=== PATIENT | male | born 1955 | race Hispanic/Latino ===

== ENCOUNTER 2018-05-20 11:30 | Inpatient (IN) | payer OTHER ==
--- NOTE | 2018-05-20 11:57 | ED PDOC ---
HPI: SOB/CHF/COPD Time Seen by Provider: 05/20/18 11:40 Chief Complaint (Nursing): Shortness Of Breath Chief Complaint (Provider): Shortness Of Breath History Per: Patient History/Exam Limitations: no limitations Onset/Duration Of Symptoms: Days Current Symptoms Are (Timing): Still Present Additional Complaint(s): 62 y/o male with a PMHx of Asthma, HTN, DM , CAD s/p stent placement, renal insufficiency and suprapubic tube placement brought to the ED by EMS for chest pain, shortness of breath, swelling and redness to the lower extremities bilaterally. Patient reports chest pain and shortness of breath started this morning while redness and swelling began 2-3 days ago. Patient denies fever and cough. PMD: Monalisa Arroyo Past Medical History Reviewed: Historical Data, Nursing Documentation, Vital Signs Vital Signs: Last Vital Signs Temp 98.5 F 05/20/18 11:38 Pulse 93 H 05/20/18 11:38 Resp 21 05/20/18 11:38 BP 151/79 H 05/20/18 11:38 Pulse Ox 100 05/20/18 11:38 - Medical History PMH: COPD, Diabetes, HTN, Hypercholesterolemia, Hypothyroidism, Kidney Stones (LASER TX. DONE PREVIOUSLY -NEW STONE NOW(08/09/16)), Peripheral Edema ("ON AND OFF"), Pneumonia (2015), Chronic Kidney Disease, Rheumatoid Arthritis Denies: HIV - Surgical History Surgical History: Appendectomy, Coronary Stent (1996 2006), Endoscopy, Hernia Repair - Family History Family History: States: Unknown Family Hx - Immunization History Hx Tetanus Toxoid Vaccination: No Hx Influenza Vaccination: Yes (Apr 2016) Hx Pneumococcal Vaccination: No - Home Medications Home Medications: Ambulatory Orders Medication Instructions Recorded Atorvastatin [Lipitor] 40 mg PO HS 12/17/15 Clopidogrel [Plavix] 75 mg PO DAILY 12/17/15 SITagliptin [Januvia] 25 mg PO DAILY 12/17/15 Isosorbide Mononitrate [Isosorbide 60 mg PO DAILY 12/18/15 Mononitrate ER] Levothyroxine [Synthroid] 125 mcg PO DAILY 12/18/15 Metoprolol Succinate XL [Toprol XL] 100 mg PO BID 12/18/15 Sucralfate 1 gm PO QID 12/18/15 amLODIPine [Norvasc] 5 mg PO DAILY 12/18/15 Albuterol 0.083% [Albuterol 0.083% 3 ml NEB TID 08/09/16 Inhal Leslie (2.5 mg/3 ml) UD] Albuterol HFA [Ventolin HFA 90 2 puff IH Q4 PRN 08/09/16 mcg/actuation (8 g)] Ergocalciferol (Vitamin D2) 50,000 unit PO QWK 08/09/16 [Vitamin D2] Esomeprazole Magnesium [Nexium] 20 mg PO DAILY 08/09/16 Fluticasone/Vilanterol [Breo 1 puff IH BID 08/09/16 Ellipta 100-25 Mcg INH] Nitroglycerin [Nitrostat] 0.4 mg SL PRN PRN 08/09/16 Ranolazine [Ranexa] 500 mg PO BID 08/09/16 Tiotropium Bowen Inhaler 1 puff IH DAILY 08/09/16 [Spiriva Inhalation Handihaler Device] Ciprofloxacin [Cipro] 1 tab PO BID #6 tab 09/15/16 Esomeprazole Magnesium [Nexium] 20 mg PO DAILY 09/21/16 Fluticasone/Vilanterol [Breo 1 puff IH DAILY 09/21/16 Ellipta 100-25 Mcg INH] Loratadine [Claritin] 10 mg PO DAILY 09/21/16 Tamsulosin [Flomax] 2 cap PO DAILY 09/21/16 - Allergies Allergies/Adverse Reactions: Allergies Allergy/AdvReac Type Severity Reaction Status Date / Time erythromycin base Allergy ANGIOEDEMA Verified 05/20/18 11:46 Review of Systems ROS Statement: Except As Marked, All Systems Reviewed And Found Negative Cardiovascular: Positive for: Chest Pain Respiratory: Positive for: Shortness of Breath Musculoskeletal: Positive for: Leg Pain (redness and swelling to the bilateral lower extremities) Physical Exam - Reviewed Nursing Documentation Reviewed: Yes Vital Signs Reviewed: Yes - Physical Exam Appears: Positive for: No Acute Distress Head Exam: Positive for: ATRAUMATIC Skin: Positive for: Warm, Dry Eye Exam: Positive for: EOMI, PERRL Neck: Positive for: Normal Cardiovascular/Chest: Positive for: Regular Rate, Rhythm. Negative for: Murmur Respiratory: Positive for: Normal Breath Sounds. Negative for: Respiratory Distress Gastrointestinal/Abdominal: Positive for: Soft, Other (suprapubic tube in place). Negative for: Tenderness Extremity: Positive for: Other (bilateral erythema from ankle to mid-campbell associated with 1+ pitting edema bilaterally). Negative for: Calf Tenderness Neurologic/Psych: Positive for: Alert, Oriented. Negative for: Motor/Sensory Deficits - Laboratory Results Result Diagrams: 05/20/18 12:00 05/20/18 12:00 - ECG O2 Sat by Pulse Oximetry: 100 (RA) Pulse Ox Interpretation: Normal Medical Decision Making Medical Decision Making: Time: 1151 Plan: -- VBG -- EKG -- B-Type Natriuretic -- CMP -- Troponin I -- ED Urine Dipstick -- CBC with Differentials -- CXR Two Views -- Vancomycin Inj 1 gm Sodium Chloride 0.9% 250 ml IVPB -- Blood Culture -- Blood Culture -- Urine Culture -- US Duplex Lower Extremity Vein Bilateral Scribe Attestation: Documented by John Miller, acting as a scribe Aba Israel MD. Provider Scribe Attestation: All medical record entries made by the Scribe were at my direction and personally dictated by me. I have reviewed the chart and agree that the record accurately reflects my personal performance of the history, physical exam, medical decision making, and the department course for this patient. I have also personally directed, reviewed, and agree with the discharge instructions and disposition. Disposition - Clinical Impression Clinical Impression: Chest pain, Cellulitis - Patient ED Disposition Is Patient to be Admitted: Yes - Disposition Disposition Time: 13:16 Condition: FAIR Forms: [facility] ([place]) - Pt Status Changed To: Hospital Disposition Of: Observation - POA Present On Arrival: None
[2018-05-20] MEDS ORDERED: Vancomycin 1 g Inj ONE (12:12)
[2018-05-20 12:18] LABS: BASO # 0.1 K/uL (0.0-0.2); BASO % 0.9 % (0.0-2.0); EOS # 0.2 K/uL (0.0-0.7); EOS % 3.3 % (0.0-4.0); HEMOGLOBIN 10.5 g/dL (12.0-18.0); LYMPH # 1.1 K/uL (1.0-4.3); LYMPH % 17.3 % (20.0-40.0); MEAN CELL VOLUME 84.6 fl (80.0-94.0); MEAN CORPUSCULAR HEMOGLOBIN 27.1 pg (27.0-31.0); MEAN PLATELET VOLUME 8.1 fl (7.2-11.7); MONO # 0.6 K/uL (0.0-0.8); MONO % 9.4 % (0.0-10.0); NEUT # 4.3 K/uL (1.8-7.0); NEUT % 69.1 % (50.0-75.0); NRBC % 0.1 % (0.0-0.0); RBC 3.86 Mil/uL (4.40-5.90); WHITE BLOOD COUNT 6.2 K/uL (4.8-10.8)
[2018-05-20 12:38] LABS: VENOUS BLOOD GAS BASE EXCESS 1.5 mmol/L (0.0-2.0); VENOUS BLOOD GAS PCO2 43 mmHg (40-60); VENOUS BLOOD GAS PO2 34 mm/Hg (30-55)
[2018-05-20] MEDS ORDERED: Sodium Chloride 0.9% 1,000 ML IV STA (12:40)
[2018-05-20 12:48] LABS: ALB/GLOB RATIO 1.3 (1.0-2.1); ALBUMIN 4.4 g/dL (3.5-5.0); ALT/SGPT 40 U/L (21-72); AST/SGOT 34 U/L (17-59); B-TYPE NATRIURETIC PEPTIDE 148 pg/ml (0-900); BLOOD UREA NITROGEN 38 mg/dl (9-20); CALCIUM 9.3 mg/dL (8.4-10.2); GFR NON-AFRICAN AMERICAN 32
--- NOTE | 2018-05-20 14:45 | RAD ---
Date of service: 05/20/2018 HISTORY: cough COMPARISON: No prior. FINDINGS: LUNGS: No active pulmonary disease. PLEURA: No significant pleural effusion identified, no pneumothorax apparent. CARDIOVASCULAR: No aortic atherosclerotic calcification present. Normal cardiac size. No pulmonary vascular congestion. OSSEOUS STRUCTURES: No significant abnormalities. VISUALIZED UPPER ABDOMEN: Normal. OTHER FINDINGS: None. IMPRESSION: No active disease.
[2018-05-20] MEDS ORDERED: Albuterol HFA 90 mcg/actuation (8 g) IH PRN (15:17)
[2018-05-20 15:47] LABS: VENOUS BLOOD GAS BASE EXCESS 1.2 mmol/L (0.0-2.0); VENOUS BLOOD GAS PCO2 50 mmHg (40-60); VENOUS BLOOD GAS PO2 41 mm/Hg (30-55); VENOUS BLOOD PH 7.35 (7.32-7.43)
[2018-05-20] MEDS: Metoprolol Succinate 100 mg XL Tab PO SCH (18:05)
--- NOTE | 2018-05-20 18:11 | CARD ---
APPROVED REPORT Date of service: 05/20/2018 EKG Measurement Heart [id number] <Conclusion> Normal sinus rhythm Left axis deviation Abnormal ECG
[2018-05-21 03:31] LABS: ALB/GLOB RATIO 1.2 (1.0-2.1); ALBUMIN 3.7 g/dL (3.5-5.0); CALCIUM 8.8 mg/dL (8.4-10.2)
[2018-05-21 03:43] LABS: TROPONIN I 0.024 ng/mL (0.00-0.120)
[2018-05-21 08:48] LABS: HEMOGLOBIN 10.2 g/dL (12.0-18.0); MEAN CELL VOLUME 85.4 fl (80.0-94.0); MEAN CORPUSCULAR HGB CONC 31.6 g/dL (33.0-37.0); RBC 3.79 Mil/uL (4.40-5.90); RED CELL DISTRIBUTION WIDTH 16.9 % (11.5-14.5); WHITE BLOOD COUNT 6.2 K/uL (4.8-10.8)
[2018-05-21] MEDS ORDERED: GlipiZIDE 2.5 mg SR Tab PO SCH (09:00)
[2018-05-21] MEDS: GlipiZIDE 2.5 mg SR Tab PO SCH (10:39)
[2018-05-21] MEDS: Ranolazine 500 mg Extended Release Tablets PO SCH ×2 (10:40→17:01)
[2018-05-21] MEDS: Levothyroxine 125 MCG TAB PO SCH (10:41)
[2018-05-21] MEDS: Metoprolol Succinate 100 mg XL Tab PO SCH ×2 (10:41→17:01)
[2018-05-21] MEDS: Tiotropium 18 mcg Cap For Inhalation IH SCH (10:41)
--- NOTE | 2018-05-21 11:04 | CP.PCM.HP ---
History of Present Illness - History of Present Illness History of Present Illness: 62 y/o male with a PMHx of Asthma, HTN, DM , CAD s/p stent placement, renal insufficiency and suprapubic tube placement admitted due to chest pain and bilateral leg cellulitis. Patient states he feels well now. Chest pain improved. lower legs itchy and swelling though denies pain. no toher complaints at this time. 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 Present on Admission - Present on Admission Any Indicators Present on Admission: No Review of Systems - Review of Systems All systems: reviewed and no additional remarkable complaints except (mentioned above) Past Patient History - Past Medical History & Family History Past Medical History?: Yes - Past Social History Smoking Status: Never Smoked - CARDIAC Hx Cardiac Disorders: Yes Hx Hypercholesterolemia: Yes Hx Peripheral Edema: Yes - PULMONARY Hx Respiratory Disorders: Yes Hx Asthma: Yes Hx Chronic Obstructive Pulmonary Disease (COPD): Yes - NEUROLOGICAL Hx Neurological Disorder: Yes (SEE COMMENT) Other/Comment: NEUROPATHY - HEENT Hx HEENT Problems: Yes (SEE COMMENT) Other/Comment: had tube on rt ear before due to fluids but already taken out - RENAL Hx Chronic Kidney Disease: Yes Hx Dialysis: No Hx Kidney Stones: Yes - ENDOCRINE/METABOLIC Hx Endocrine Disorders: Yes Hx Diabetes Mellitus Type 2: Yes Hx Hypothyroidism: Yes - HEMATOLOGICAL/ONCOLOGICAL Hx Blood Disorders: No Hx Human Immunodeficiency Virus (HIV): No - INTEGUMENTARY Hx Dermatological Problems: Yes (SEE COMMENT) Other/Comment: mass on back of neck and back - MUSCULOSKELETAL/RHEUMATOLOGICAL Hx Musculoskeletal Disorders: Yes Hx Falls: No Hx Rheumatoid Arthritis: Yes - GASTROINTESTINAL Hx Gastrointestinal Disorders: No - GENITOURINARY/GYNECOLOGICAL Hx Genitourinary Disorders: Yes (SEE COMMENT) Hx Hematuria: Yes Hx Prostate Problems: Yes Other/Comment: HX: RETENTION - PSYCHIATRIC Hx Psychophysiologic Disorder: No Hx Substance Use: No - SURGICAL HISTORY Hx Surgeries: Yes Hx Appendectomy: Yes Hx Coronary Stent: Yes (1996 2006) Other/Comment: Kidney Stones (laser) - ANESTHESIA Hx Anesthesia: Yes Hx Anesthesia Reactions: Yes (NAUSEA) Hx Malignant Hyperthermia: No Has any member of the family had a problem w/ anesthesia?: No Meds Allergies/Adverse Reactions: Allergies Allergy/AdvReac Type Severity Reaction Status Date / Time erythromycin base Allergy ANGIOEDEMA Verified 05/20/18 11:46 Physical Exam - Constitutional Appears: Non-toxic, No Acute Distress - Head Exam Head Exam: NORMAL INSPECTION - Eye Exam Eye Exam: Normal appearance - Neck Exam Neck exam: Positive for: Normal Inspection - Respiratory Exam Respiratory Exam: NORMAL BREATHING PATTERN - Cardiovascular Exam Cardiovascular Exam: +S1, +S2 - GI/Abdominal Exam GI & Abdominal Exam: Normal Bowel Sounds, Soft - Extremities Exam Additional comments: bilateral lesions appearing petechiae like extending from below knee to ankles. - Neurological Exam Neurological exam: Alert, Oriented x3 - Psychiatric Exam Psychiatric exam: Normal Affect, Normal Mood - Skin Skin Exam: Normal Color, Warm Results - Vital Signs Recent Vital Signs: Last Vital Signs Temp 97.8 F 05/21/18 08:39 Pulse 69 05/21/18 10:41 Resp 20 05/21/18 08:39 BP 137/76 05/21/18 10:41 Pulse Ox 100 05/21/18 08:39 - Labs Result Diagrams: 05/22/18 04:20 05/22/18 04:20 Labs: Laboratory Results - last 24 hr 05/20/18 05/20/18 05/20/18 12:00 12:00 12:15 WBC 6.2 RBC 3.86 L Hgb 10.5 L Hct 32.7 L MCV 84.6 D MCH 27.1 MCHC 32.0 L RDW 17.0 H Plt Count 191 MPV 8.1 Neut % (Auto) 69.1 Lymph % (Auto) 17.3 L [place] % (Auto) 9.4 Eos % (Auto) 3.3 Baso % (Auto) 0.9 Neut # (Auto) 4.3 Lymph # (Auto) 1.1 [place] # (Auto) 0.6 Eos # (Auto) 0.2 Baso # (Auto) 0.1 pO2 34 VBG pH 7.40 VBG pCO2 43 VBG HCO3 25.2 VBG Total CO2 27.9 VBG O2 Sat (Calc) 70.3 H VBG Base Excess 1.5 VBG Potassium Glucose 156 H Lactate 2.2 H FiO2 21.0 Crit Value Called To Dr nadir schwartz Crit Value Called By Rt Crit Value Read Back Y Blood Gas Notified Time 1237 Sodium 142 196.0 H* Potassium 4.3 Chloride 106 122.0 H Carbon Dioxide 25 Anion Gap 15 BUN 38 H Creatinine 2.1 H Est GFR ( Amer) 39 Est GFR (Non-Af Amer) 32 POC Glucose (mg/dL) Random Glucose 155 H Calcium 9.3 Total Bilirubin 0.3 AST 34 ALT 40 Alkaline Phosphatase 74 Troponin I < 0.0120 NT-Pro-B Natriuret Pep 148 Total Protein 7.9 Albumin 4.4 Globulin 3.4 Albumin/Globulin Ratio 1.3 Venous Blood Potassium 05/20/18 05/20/18 05/20/18 15:42 17:13 20:01 WBC RBC Hgb Hct MCV MCH MCHC RDW Plt Count MPV Neut % (Auto) Lymph % (Auto) [place] % (Auto) Eos % (Auto) Baso % (Auto) Neut # (Auto) Lymph # (Auto) [place] # (Auto) Eos # (Auto) Baso # (Auto) pO2 41 VBG pH 7.35 VBG pCO2 50 VBG HCO3 25.2 VBG Total CO2 29.1 H VBG O2 Sat (Calc) 80.1 H VBG Base Excess 1.2 VBG Potassium 3.8 Glucose 97 Lactate 0.8 FiO2 28.0 Crit Value Called To Crit Value Called By Crit Value Read Back Blood Gas Notified Time Sodium 141.0 Potassium Chloride 110.0 H Carbon Dioxide Anion Gap BUN Creatinine Est GFR ( Amer) Est GFR (Non-Af Amer) POC Glucose (mg/dL) 73 Random Glucose Calcium Total Bilirubin AST ALT Alkaline Phosphatase Troponin I 0.0280 NT-Pro-B Natriuret Pep Total Protein Albumin Globulin Albumin/Globulin Ratio Venous Blood Potassium 3.8 05/20/18 05/21/18 05/21/18 21:25 03:10 05:30 WBC 6.2 RBC 3.79 L Hgb 10.2 L Hct 32.4 L MCV 85.4 MCH 27.0 MCHC 31.6 L RDW 16.9 H Plt Count 187 MPV Neut % (Auto) Lymph % (Auto) [place] % (Auto) Eos % (Auto) Baso % (Auto) Neut # (Auto) Lymph # (Auto) [place] # (Auto) Eos # (Auto) Baso # (Auto) pO2 VBG pH VBG pCO2 VBG HCO3 VBG Total CO2 VBG O2 Sat (Calc) VBG Base Excess VBG Potassium Glucose Lactate FiO2 Crit Value Called To Crit Value Called By Crit Value Read Back Blood Gas Notified Time Sodium 141 Potassium 4.3 Chloride 109 H Carbon Dioxide 25 Anion Gap 11 BUN 31 H Creatinine 2.0 H Est GFR ( Amer) 41 Est GFR (Non-Af Amer) 34 POC Glucose (mg/dL) 144 H Random Glucose 157 H Calcium 8.8 Total Bilirubin 0.3 AST 33 ALT 43 Alkaline Phosphatase 65 Troponin I 0.0240 NT-Pro-B Natriuret Pep Total Protein 6.9 Albumin 3.7 Globulin 3.2 Albumin/Globulin Ratio 1.2 Venous Blood Potassium 05/21/18 06:01 WBC RBC Hgb Hct MCV MCH MCHC RDW Plt Count MPV Neut % (Auto) Lymph % (Auto) [place] % (Auto) Eos % (Auto) Baso % (Auto) Neut # (Auto) Lymph # (Auto) [place] # (Auto) Eos # (Auto) Baso # (Auto) pO2 VBG pH VBG pCO2 VBG HCO3 VBG Total CO2 VBG O2 Sat (Calc) VBG Base Excess VBG Potassium Glucose Lactate FiO2 Crit Value Called To Crit Value Called By Crit Value Read Back Blood Gas Notified Time Sodium Potassium Chloride Carbon Dioxide Anion Gap BUN Creatinine Est GFR ( Amer) Est GFR (Non-Af Amer) POC Glucose (mg/dL) 182 H Random Glucose Calcium Total Bilirubin AST ALT Alkaline Phosphatase Troponin I NT-Pro-B Natriuret Pep Total Protein Albumin Globulin Albumin/Globulin Ratio Venous Blood Potassium Assessment & Plan - Assessment and Plan (Free Text) Assessment: 62 y/o male with a PMHx of Asthma, HTN, DM , CAD s/p stent placement, renal insufficiency and suprapubic tube placement admitted due to chest pain and bilateral leg cellulitis. Possibly IgA nephropathy/vasculiltis? plan ID consulted c/w iv abx for now Nephrology consulted, dr. eva bossamine lotion c/w home meds
--- NOTE | 2018-05-21 13:35 | CP.PCM.CON ---
History of Present Illness - History of Present Illness History of Present Illness: 62 y/o male with a PMHx of Asthma, HTN, DM , CAD s/p stent placement, renal insufficiency and suprapubic tube placement brought to the ED by EMS for chest pain, shortness of breath, swelling and redness to the lower extremities bilater ally. referred for ID eval of this- he states redness and swelling improved on antibiotics He denies contact with chemicala and on new medications denies travel pets or bites - Medical History PMH: COPD, Diabetes, HTN, Hypercholesterolemia, Hypothyroidism, Kidney Stones (LASER TX. DONE PREVIOUSLY -NEW STONE NOW(08/09/16)), Peripheral Edema ("ON AND OFF"), Pneumonia (2015), Chronic Kidney Disease, Rheumatoid Arthritis Denies: HIV - Surgical History Surgical History: Appendectomy, Coronary Stent (1996 2006), Endoscopy, Hernia Repair Review of Systems - Constitutional Constitutional: As Per HPI - EENT Eyes: absent: As Per HPI, Blind Spots, Blurred Vision, Change in Vision, Decreased Night Vision, Diplopia, Discharge, Dry Eye, Exophthalmos, Floaters, Irritation, Itchy Eyes, Loss of Peripheral Vision, Pain, Photophobia, Requires Corrective Lenses, Sees Flashes, Spots in Vision, Tunnel Vision, Other Visual Disturbances, Loss of Vision, Other Ears: absent: As Per HPI, Decreased Hearing, Ear Discharge, Ear Pain, Tinnitus, Abnormal Hearing, Disequilibrium, Dizziness, Other Nose/Mouth/Throat: absent: As Per HPI, Epistaxis, Nasal Congestion, Nasal Discharge, Nasal Obstruction, Nasal Trauma, Nose Pain, Post Nasal Drip, Sinus Pain, Sinus Pressure, Bleeding Gums, Change in Voice, Dental Pain, Dry Mouth, Dysphagia, Halitosis, Hoarsness, Lip Swelling, Mouth Lesions, Mouth Pain, Odynophagia, Sore Throat, Throat Swelling, Tongue Swelling, Facial Pain, Neck Pain, Neck Mass, Other - Cardiovascular Cardiovascular: As Per HPI - Gastrointestinal Gastrointestinal: absent: As Per HPI, Abdominal Pain, Belching, Bloating, Change in Bowel Habits, Change in Stool Character, Coffee Ground Emesis, Constipation, Cramping, Diarrhea, Dyspepsia, Dysphagia, Early Satiety, Excessive Flatus, Fecal Incontinence, Heartburn, Hematemesis, Hematochezia, Loose Stools, Melena, Nausea, Odynophagia, Temesmus, Vomiting, Other - Genitourinary Genitourinary: absent: As Per HPI, Change in Urinary Stream, Difficulty Urinating, Dysuria, Flank Pain, Hematuria, Pyuria, Nocturia, Urinary Incontinence, Urinary Frequency, Urinary Hesitance, Urinary Urgency, Voiding Freq/Small Amts, Freq UTI, Hx Renal/Bladder Calculi, Hx /Renal Surgery, Bladder Distension, Other - Musculoskeletal Musculoskeletal: absent: As Per HPI, Abnormal Gait, Arthralgias, Atrophy, Back Pain, Deformity, Joint Swelling, Limited Range of Motion, Loss of Height, Muscle Cramps, Muscle Weakness, Myalgias, Neck Pain, Numbness, Radiating Pain into Limb, Stiffness, Tingling, Other - Integumentary Integumentary: As Per HPI, Skin Pain - Neurological Neurological: absent: As Per HPI, Abnormal Gait, Abnormal Hearing, Abnormal Movements, Abnormal Speech, Behavioral Changes, Burning Sensations, Confusion, Convulsions, Disequilibrium, Dizziness, Numbness, Focal Weakness, Frequent Falls, Headaches, Lack of Coordination, Loss of Vision, Memory Loss, Paresthesias, Radicular Pain, Restless Legs, Sensory Deficit, Syncope, Tingling, Tremor, Vertigo, Weakness, Other Visual Disturbances, Other - Psychiatric Psychiatric: absent: As Per HPI, Abnormal Sleep Pattern, Anhedonia, Anxiety, Auditory Hallucinations, Behavioral Changes, Change in Appetite, Change in Libido, Confusion, Depression, Difficulty Concentrating, Hallucinations, Homicidal Ideation, Hopelessness, Irritability, Memory Loss, Mood Swings, Panic Attacks, Paranoia, Suicidal Ideation, Visual Hallucinations, Tactile Hallucinations, Other - Endocrine Endocrine: absent: As Per HPI, Change in Body Appearance, Change in Libido, Cold Intolorance, Deepening of Voice, Excessive Sweating, Fatigue, Flushing, Heat Intolorance, Increase in Ring/Shoe/Hat Size, Palpitations, Polydipsia, Polyphagia, Polyuria, Other - Hematologic/Lymphatic Hematologic: absent: As Per HPI, Easy Bleeding, Easy Bruising, Lymphadenopathy, Other Past Patient History - Past Medical History & Family History Past Medical History?: Yes - Past Social History Smoking Status: Never Smoked - CARDIAC Hx Cardiac Disorders: Yes Hx Hypercholesterolemia: Yes Hx Peripheral Edema: Yes - PULMONARY Hx Respiratory Disorders: Yes Hx Asthma: Yes Hx Chronic Obstructive Pulmonary Disease (COPD): Yes - NEUROLOGICAL Hx Neurological Disorder: Yes (SEE COMMENT) Other/Comment: NEUROPATHY - HEENT Hx HEENT Problems: Yes (SEE COMMENT) Other/Comment: had tube on rt ear before due to fluids but already taken out - RENAL Hx Chronic Kidney Disease: Yes Hx Dialysis: No Hx Kidney Stones: Yes - ENDOCRINE/METABOLIC Hx Endocrine Disorders: Yes Hx Diabetes Mellitus Type 2: Yes Hx Hypothyroidism: Yes - HEMATOLOGICAL/ONCOLOGICAL Hx Blood Disorders: No Hx Human Immunodeficiency Virus (HIV): No - INTEGUMENTARY Hx Dermatological Problems: Yes (SEE COMMENT) Other/Comment: mass on back of neck and back - MUSCULOSKELETAL/RHEUMATOLOGICAL Hx Musculoskeletal Disorders: Yes Hx Falls: No Hx Rheumatoid Arthritis: Yes - GASTROINTESTINAL Hx Gastrointestinal Disorders: No - GENITOURINARY/GYNECOLOGICAL Hx Genitourinary Disorders: Yes (SEE COMMENT) Hx Hematuria: Yes Hx Prostate Problems: Yes Other/Comment: HX: RETENTION - PSYCHIATRIC Hx Psychophysiologic Disorder: No Hx Substance Use: No - SURGICAL HISTORY Hx Surgeries: Yes Hx Appendectomy: Yes Hx Coronary Stent: Yes (1996 2006) Other/Comment: Kidney Stones (laser) - ANESTHESIA Hx Anesthesia: Yes Hx Anesthesia Reactions: Yes (NAUSEA) Hx Malignant Hyperthermia: No Has any member of the family had a problem w/ anesthesia?: No Meds Allergies/Adverse Reactions: Allergies Allergy/AdvReac Type Severity Reaction Status Date / Time erythromycin base Allergy ANGIOEDEMA Verified 05/20/18 11:46 - Medications Medications: Current Medications Albuterol (Ventolin Hfa 90 Mcg/Actuation (8 G)) 2 puff IH Q4 PRN PRN Reason: Shortness of Breath Amlodipine Besylate (Norvasc) 5 mg PO DAILY [facility] Last Admin: 05/21/18 10:39 Dose: 5 mg Atorvastatin Calcium (Lipitor) 40 mg PO HS [facility] Last Admin: 05/20/18 21:30 Dose: 40 mg Calamine (Calamine Lotion) 1 applic TOP TID [facility] Clopidogrel Bisulfate (Plavix) 75 mg PO DAILY [facility] Last Admin: 05/21/18 10:40 Dose: 75 mg Glipizide (Glucotrol Xl) 2.5 mg PO DAILY [facility] Last Admin: 05/21/18 10:39 Dose: 2.5 mg Piperacillin Sod/Tazobactam (Sod 2.25 gm/ Sodium Chloride) 100 mls @ 100 mls/hr IVPB Q8 [facility]; Protocol Last Admin: 05/21/18 10:42 Dose: 100 mls/hr Isosorbide Mononitrate (Imdur) 60 mg PO DAILY [facility] Last Admin: 05/21/18 10:39 Dose: 60 mg Levothyroxine Sodium (Synthroid) 125 mcg PO DAILY@0630 [facility] Last Admin: 05/21/18 10:41 Dose: 125 mcg Metoprolol Succinate (Toprol Xl) 100 mg PO BID [facility] Last Admin: 05/21/18 10:41 Dose: 100 mg Nitroglycerin (Nitrostat Sl Tab) 0.4 mg SL PRN PRN PRN Reason: Until an adequate response is Ranolazine (Ranexa) 500 mg PO BID [facility] Last Admin: 05/21/18 10:40 Dose: 500 mg Tiotropium [place] (Spiriva) 18 mcg IH DAILY [facility] Last Admin: 05/21/18 10:41 Dose: 18 mcg Physical Exam - Constitutional Appears: Non-toxic, Chronically Ill - Head Exam Head Exam: NORMOCEPHALIC - Eye Exam Eye Exam: PERRL. absent: Scleral icterus - ENT Exam ENT Exam: Mucous Membranes Dry - Neck Exam Neck exam: Negative for: Lymphadenopathy - Respiratory Exam Respiratory Exam: Decreased Breath Sounds - Cardiovascular Exam Cardiovascular Exam: REGULAR RHYTHM - GI/Abdominal Exam GI & Abdominal Exam: Diminished Bowel Sounds, Soft. absent: Tenderness - Rectal Exam Rectal Exam: Deferred - Exam Exam: NORMAL INSPECTION (suprapubic cath in place ) External exam: Erythema - Extremities Exam Extremities exam: Positive for: pedal edema, pedal pulses present. Negative for: calf tenderness, tenderness - Back Exam Back exam: absent: CVA tenderness (L), CVA tenderness (R) - Neurological Exam Neurological exam: Alert, CN II-XII Intact, Oriented x3, Reflexes Normal - Psychiatric Exam Psychiatric exam: Normal Mood - Skin Skin Exam: Dry, Rash - Additional Findings Additional findings: suprapubic catheter in place Results - Vital Signs Recent Vital Signs: Last Vital Signs Temp 97.7 F 05/21/18 12:44 Pulse 75 05/21/18 12:44 Resp 20 05/21/18 12:44 BP 152/81 H 05/21/18 12:44 Pulse Ox 100 05/21/18 12:44 - Labs Result Diagrams: 05/21/18 05:30 05/21/18 03:10 Labs: Laboratory Results - last 24 hr 05/20/18 05/20/18 05/20/18 15:42 17:13 20:01 WBC RBC Hgb Hct MCV MCH MCHC RDW Plt Count pO2 41 VBG pH 7.35 VBG pCO2 50 VBG HCO3 25.2 VBG Total CO2 29.1 H VBG O2 Sat (Calc) 80.1 H VBG Base Excess 1.2 VBG Potassium 3.8 Sodium 141.0 Chloride 110.0 H Glucose 97 Lactate 0.8 FiO2 28.0 Potassium Carbon Dioxide Anion Gap BUN Creatinine Est GFR ( Amer) Est GFR (Non-Af Amer) POC Glucose (mg/dL) 73 Random Glucose Calcium Total Bilirubin AST ALT Alkaline Phosphatase Troponin I 0.0280 Total Protein Albumin Globulin Albumin/Globulin Ratio Venous Blood Potassium 3.8 05/20/18 05/21/18 05/21/18 21:25 03:10 05:30 WBC 6.2 RBC 3.79 L Hgb 10.2 L Hct 32.4 L MCV 85.4 MCH 27.0 MCHC 31.6 L RDW 16.9 H Plt Count 187 pO2 VBG pH VBG pCO2 VBG HCO3 VBG Total CO2 VBG O2 Sat (Calc) VBG Base Excess VBG Potassium Sodium 141 Chloride 109 H Glucose Lactate FiO2 Potassium 4.3 Carbon Dioxide 25 Anion Gap 11 BUN 31 H Creatinine 2.0 H Est GFR ( Amer) 41 Est GFR (Non-Af Amer) 34 POC Glucose (mg/dL) 144 H Random Glucose 157 H Calcium 8.8 Total Bilirubin 0.3 AST 33 ALT 43 Alkaline Phosphatase 65 Troponin I 0.0240 Total Protein 6.9 Albumin 3.7 Globulin 3.2 Albumin/Globulin Ratio 1.2 Venous Blood Potassium 05/21/18 05/21/18 06:01 11:24 WBC RBC Hgb Hct MCV MCH MCHC RDW Plt Count pO2 VBG pH VBG pCO2 VBG HCO3 VBG Total CO2 VBG O2 Sat (Calc) VBG Base Excess VBG Potassium Sodium Chloride Glucose Lactate FiO2 Potassium Carbon Dioxide Anion Gap BUN Creatinine Est GFR ( Amer) Est GFR (Non-Af Amer) POC Glucose (mg/dL) 182 H 176 H Random Glucose Calcium Total Bilirubin AST ALT Alkaline Phosphatase Troponin I Total Protein Albumin Globulin Albumin/Globulin Ratio Venous Blood Potassium Assessment & Plan (1) Cellulitis Status: Acute (2) Benign prostate hyperplasia Status: Acute (3) CAD (coronary artery disease) Status: Acute (4) Chronic kidney disease, stage IV (severe) Status: Acute - Assessment and Plan (Free Text) Assessment: petecchial rash both lower extremities with odd distribution and cutoff appearance above ankles although patient states improvement with antibiotics- other causeds besides infection should be considedred would consider Henoch-Schonlein purpura Consider Renal eval- r/o IGA nephropathy / vascultitis May consider steroids if no improvement
[2018-05-21] MEDS: Calamine/Zinc Oxide LOTION TOP SCH ×2 (13:45→17:04)
[2018-05-21 17:31] VITALS: BMI 34.2
[2018-05-21 18:07] LABS: COMPLEMENT C4 32.4 mg/dL (14.0-44.0); IMMUNOGLOBULIN A 116.7 mg/dL (70.0-400.0)
[2018-05-22 05:59] LABS: HEMOGLOBIN 9.9 g/dL (12.0-18.0); MEAN CELL VOLUME 84.7 fl (80.0-94.0); MEAN CORPUSCULAR HEMOGLOBIN 26.7 pg (27.0-31.0); MEAN CORPUSCULAR HGB CONC 31.5 g/dL (33.0-37.0); RBC 3.69 Mil/uL (4.40-5.90); RED CELL DISTRIBUTION WIDTH 16.9 % (11.5-14.5); WHITE BLOOD COUNT 6.5 K/uL (4.8-10.8)
[2018-05-22 06:13] LABS: ALB/GLOB RATIO 1.2 (1.0-2.1); ALBUMIN 3.8 g/dL (3.5-5.0); CALCIUM 8.9 mg/dL (8.4-10.2)
[2018-05-22] MEDS: Ranolazine 500 mg Extended Release Tablets PO SCH ×2 (09:25→17:01)
[2018-05-22] MEDS: Metoprolol Succinate 100 mg XL Tab PO SCH ×2 (09:25→17:02)
[2018-05-22] MEDS: Tiotropium 18 mcg Cap For Inhalation IH SCH (09:27)
[2018-05-22] MEDS: Levothyroxine 125 MCG TAB PO SCH (09:27)
[2018-05-22] MEDS: GlipiZIDE 2.5 mg SR Tab PO SCH (09:27)
[2018-05-22] MEDS: Calamine/Zinc Oxide LOTION TOP SCH ×3 (09:29→17:06)
[2018-05-22 13:55] LABS: IRON 32 ug/dL (49-181)
--- NOTE | 2018-05-22 14:00 | CP.PCM.PN ---
Subjective - Date & Time of Evaluation Date of Evaluation: 05/22/18 Time of Evaluation: 10:00 - Subjective Subjective: patient seen and examined at bedside. no acute events overnight. chest pain resolved. bilateral lower leg rash improving. Objective - Vital Signs/Intake and Output Vital Signs (last 24 hours): Temp Pulse Resp BP Pulse Ox 98.3 F 71 18 138/70 93 L 05/22/18 11:55 05/22/18 11:55 05/22/18 11:55 05/22/18 11:55 05/22/18 11:55 - Medications Medications: Current Medications Albuterol (Ventolin Hfa 90 Mcg/Actuation (8 G)) 2 puff IH Q4 PRN PRN Reason: Shortness of Breath Allopurinol (Zyloprim) 300 mg PO DAILY [facility] Last Admin: 05/22/18 13:13 Dose: 300 mg Amlodipine Besylate (Norvasc) 5 mg PO DAILY [facility] Last Admin: 05/22/18 09:27 Dose: 5 mg Atorvastatin Calcium (Lipitor) 40 mg PO HS [facility] Last Admin: 05/21/18 23:08 Dose: 40 mg Calamine (Calamine Lotion) 1 applic TOP TID [facility] Last Admin: 05/22/18 13:14 Dose: 1 applic Clopidogrel Bisulfate (Plavix) 75 mg PO DAILY [facility] Last Admin: 05/22/18 09:27 Dose: 75 mg Ferrous Gluconate (Fergon) 324 mg PO TID [facility] Last Admin: 05/22/18 13:13 Dose: 324 mg Glipizide (Glucotrol Xl) 2.5 mg PO DAILY [facility] Last Admin: 05/22/18 09:27 Dose: 2.5 mg Piperacillin Sod/Tazobactam (Sod 2.25 gm/ Sodium Chloride) 100 mls @ 100 mls/hr IVPB Q8 [facility]; Protocol Last Admin: 05/22/18 09:27 Dose: 100 mls/hr Isosorbide Mononitrate (Imdur) 60 mg PO DAILY [facility] Last Admin: 05/22/18 09:27 Dose: 60 mg Levothyroxine Sodium (Synthroid) 125 mcg PO DAILY@0630 [facility] Last Admin: 05/22/18 09:27 Dose: 125 mcg Losartan Potassium (Cozaar) 25 mg PO DAILY [facility] Metoprolol Succinate (Toprol Xl) 100 mg PO BID [facility] Last Admin: 05/22/18 09:25 Dose: 100 mg Nitroglycerin (Nitrostat Sl Tab) 0.4 mg SL PRN PRN PRN Reason: Until an adequate response is Ranolazine (Ranexa) 500 mg PO BID [facility] Last Admin: 05/22/18 09:25 Dose: 500 mg Tiotropium [place] (Spiriva) 18 mcg IH DAILY [facility] Last Admin: 05/22/18 09:27 Dose: 18 mcg Vitamin B Complex/Vit C/Folic Acid (Nephro-Noel) 1 tab PO DAILY [facility] - Labs Labs: 05/22/18 04:20 05/22/18 04:20 - Constitutional Appears: Well, No Acute Distress - Head Exam Head Exam: NORMAL INSPECTION - Eye Exam Eye Exam: Normal appearance - Neck Exam Neck Exam: Normal Inspection - Respiratory Exam Respiratory Exam: NORMAL BREATHING PATTERN - Cardiovascular Exam Cardiovascular Exam: +S1, +S2 - GI/Abdominal Exam GI & Abdominal Exam: Soft - Extremities Exam Additional comments: bilateral lesions appearing petechiae like extending from below knee to ankles, improving R>L - Neurological Exam Neurological Exam: Alert, Awake, Oriented x3 - Psychiatric Exam Psychiatric exam: Normal Affect, Normal Mood - Skin Skin Exam: Normal Color, Warm Assessment and Plan - Assessment and Plan (Free Text) Assessment: 62 y/o male with a PMHx of Asthma, HTN, DM , CAD s/p stent placement, renal insufficiency and suprapubic tube placement admitted due to chest pain and bilateral leg cellulitis. Possibly IgA nephropathy/vasculiltis? plan ID consult appreciated c/w iv abx for now Nephrology consulted, dr. velasquez serologies pending c/w home meds
[2018-05-22 14:05] LABS: % IRON SATURATION 7 % (20-55); TOTAL IRON BINDING CAPACITY 426 ug/dL (250-450)
--- NOTE | 2018-05-22 14:13 | US ---
Date of service: 05/20/2018 PROCEDURE: Bilateral lower extremity venous duplex Doppler. HISTORY: Swelling r/o DVT COMPARISON: None available. TECHNIQUE: Bilateral common femoral, superficial femoral, popliteal and posterior tibial veins were evaluated. Flow was assessed with color Doppler, compressibility, assessment of phasic flow and augmentation response. FINDINGS: COMMON FEMORAL VEIN: Right CFV: Unremarkable. Left CFV: Unremarkable. SUPERFICIAL FEMORAL VEIN: Right SFV: Unremarkable. Left SFV: Unremarkable. POPLITEAL VEIN: Right Popliteal: Unremarkable. Left Popliteal: Unremarkable. POSTERIOR TIBIAL VEIN: Right PTV: Unremarkable. Left PTV: Unremarkable. OTHER FINDINGS: None. IMPRESSION: No evidence of deep venous thrombosis. Preliminary report contains concordant findings was submitted to the referring physicianby [facility] radiology
[2018-05-22 14:31] LABS: FERRITIN 12.6 ng/Ml (17.9-464)
--- NOTE | 2018-05-22 16:13 | CP.PCM.CON ---
History of Present Illness - History of Present Illness History of Present Illness: Nephrology Consultation Note: Assessment: Stable Diabetic chronic Kidney Disease (E11.22) Hypertensive Chronic Kidney Disease (I12.9) Chronic Kidney Disease (N18.3) Stage 3 with ? mg proteinuria (R80.9) likely due to DM/HTN/GABRIELLA Anemia (D64.9), obesity, CAD s/p stent, asthma uric acid stones chronic SP catheter with hx o stricture, atonic bladder and overflow incontinence Plan No acute need for renal replacement therapy at this time. Hypertension control with meds as ordered. Maintain hemodynamics stable. Avoid hypotension. Patient not on ACEI/ARB hence added losartan 25 mg/day Monitor Input/Output, daily weights and renal function with basic metabolic panel started iron and MVI added allopurinol considering hx of uric acid stones Check urine analysis, spot protein/creatinine, albumin/creatinine ratio, uric acid level Anemia work up with TSAT/Ferritin/Vitamin B12/folate, serum protein electrophoresis with immunofixation, serum free light chain assay ([place]/Lambda) Check for 25-OH vitamin D, iPTH, phosphorus level. Dose meds/antibiotics for reduced GFR. Avoid fleets enema/magnesium based laxatives. Avoid nephrotoxins/NSAIDs/ iodinated contrast (unless needed emergently) Glycemic control Further work up/management as per primary team Thanks for allowing me to participate in care of your patient. Will follow patient with you. Please call if any Qs. had d/w team Dr Pj Gamino Office: [phone] Chief Complaint; leg rash Reason for consult: CKD HPI: Pt is a with hx of diabetes Mellitus ( years), hypertension (years) CAD s/p stent obesity asthma uric acid stones, CKD stage 3 baseline cr 1.7-1.9, anemia, suprapubic catheter presented with complaints of CP/SOB and leg rash. renal consult for CKD. pt aware about it and f/up with Dr Cruz Denies OTC/herbal meds or NSAIDs No recent iodinated contrast exposure. No obvious episodes of low BP. ROS: Cardiovascular: No chest pain now. Pulmonary: No shortness of breath now Gastrointestinal: denies abdominal pain No nausea. No vomiting. Genitourinary: No pain while urinating. Denies blood in urine. All other negative except as mentioned in HPI Physical Examination: General Appearance: Comfortable, in no acute respiratory distress, co-operative . Vitals reviewed and noted as below Head; Atraumatic, normocephalic ENT: no ulcers no thrush. Tongue is midline. Oropharynx: no rash or ulcers. EYES: Pupils are equal, round and reactive to light accommodation. Eye muscles and extraocular movement intact. Sclera is anicteric. Neck; supple no lymphadenopathy, no thyromegaly or bruit Lungs: Normal respiratory rate/effort. Breath sounds bilateral equal and clear Heart: Normal rate. s1s2 normal. No rub or gallop. Extremities: no edema. No varicose veins Neurological: Patient is alert, awake and oriented to person, place and time. No focal deficit. Strength bilateral appropriate and equal Skin: Warm and dry. Normal turgor. Noted rash in legs ? allergic. Palpitation: Normal elasticity for age Abdomen: Abdomen is soft. Bowel sounds +. There is no abdominal tenderness, no guarding/rigidity no organomegaly Psych: normal insight and normal affect/mood MSK: no joint tenderness or swelling. Digits and nails normal, no deformity : kidney or bladder not palpable. has SP catheter Labs/imaging reviewed. Past medical history, past surgical history, family history, social history, allergy reviewed and noted as below Family hx: no hx of CKD. Rest non-contributory Past Patient History - Past Medical History & Family History Past Medical History?: Yes - Past Social History Smoking Status: Never Smoked - CARDIAC Hx Cardiac Disorders: Yes Hx Hypercholesterolemia: Yes Hx Peripheral Edema: Yes - PULMONARY Hx Respiratory Disorders: Yes Hx Asthma: Yes Hx Chronic Obstructive Pulmonary Disease (COPD): Yes - NEUROLOGICAL Hx Neurological Disorder: Yes (SEE COMMENT) Other/Comment: NEUROPATHY - HEENT Hx HEENT Problems: Yes (SEE COMMENT) Other/Comment: had tube on rt ear before due to fluids but already taken out - RENAL Hx Chronic Kidney Disease: Yes Hx Dialysis: No Hx Kidney Stones: Yes - ENDOCRINE/METABOLIC Hx Endocrine Disorders: Yes Hx Diabetes Mellitus Type 2: Yes Hx Hypothyroidism: Yes - HEMATOLOGICAL/ONCOLOGICAL Hx Blood Disorders: No Hx Human Immunodeficiency Virus (HIV): No - INTEGUMENTARY Hx Dermatological Problems: Yes (SEE COMMENT) Other/Comment: mass on back of neck and back - MUSCULOSKELETAL/RHEUMATOLOGICAL Hx Musculoskeletal Disorders: Yes Hx Falls: No Hx Rheumatoid Arthritis: Yes - GASTROINTESTINAL Hx Gastrointestinal Disorders: No - GENITOURINARY/GYNECOLOGICAL Hx Genitourinary Disorders: Yes (SEE COMMENT) Hx Hematuria: Yes Hx Prostate Problems: Yes Other/Comment: HX: RETENTION - PSYCHIATRIC Hx Psychophysiologic Disorder: No Hx Substance Use: No - SURGICAL HISTORY Hx Surgeries: Yes Hx Appendectomy: Yes Hx Coronary Stent: Yes (1996 2006) Other/Comment: Kidney Stones (laser) - ANESTHESIA Hx Anesthesia: Yes Hx Anesthesia Reactions: Yes (NAUSEA) Hx Malignant Hyperthermia: No Has any member of the family had a problem w/ anesthesia?: No Meds Allergies/Adverse Reactions: Allergies Allergy/AdvReac Type Severity Reaction Status Date / Time erythromycin base Allergy ANGIOEDEMA Verified 05/20/18 11:46 - Medications Medications: Current Medications Albuterol (Ventolin Hfa 90 Mcg/Actuation (8 G)) 2 puff IH Q4 PRN PRN Reason: Shortness of Breath Allopurinol (Zyloprim) 300 mg PO DAILY [facility] Last Admin: 05/22/18 13:13 Dose: 300 mg Amlodipine Besylate (Norvasc) 5 mg PO DAILY [facility] Last Admin: 05/22/18 09:27 Dose: 5 mg Atorvastatin Calcium (Lipitor) 40 mg PO HS [facility] Last Admin: 05/21/18 23:08 Dose: 40 mg Calamine (Calamine Lotion) 1 applic TOP TID [facility] Last Admin: 05/22/18 13:14 Dose: 1 applic Clopidogrel Bisulfate (Plavix) 75 mg PO DAILY [facility] Last Admin: 05/22/18 09:27 Dose: 75 mg Ferrous Gluconate (Fergon) 324 mg PO TID [facility] Last Admin: 05/22/18 13:13 Dose: 324 mg Glipizide (Glucotrol Xl) 2.5 mg PO DAILY [facility] Last Admin: 05/22/18 09:27 Dose: 2.5 mg Piperacillin Sod/Tazobactam (Sod 2.25 gm/ Sodium Chloride) 100 mls @ 100 mls/hr IVPB Q8 [facility]; Protocol Last Admin: 05/22/18 09:27 Dose: 100 mls/hr Isosorbide Mononitrate (Imdur) 60 mg PO DAILY [facility] Last Admin: 05/22/18 09:27 Dose: 60 mg Levothyroxine Sodium (Synthroid) 125 mcg PO DAILY@0630 [facility] Last Admin: 05/22/18 09:27 Dose: 125 mcg Losartan Potassium (Cozaar) 25 mg PO DAILY [facility] Metoprolol Succinate (Toprol Xl) 100 mg PO BID [facility] Last Admin: 05/22/18 09:25 Dose: 100 mg Nitroglycerin (Nitrostat Sl Tab) 0.4 mg SL PRN PRN PRN Reason: Until an adequate response is Ranolazine (Ranexa) 500 mg PO BID [facility] Last Admin: 05/22/18 09:25 Dose: 500 mg Tiotropium [place] (Spiriva) 18 mcg IH DAILY [facility] Last Admin: 05/22/18 09:27 Dose: 18 mcg Vitamin B Complex/Vit C/Folic Acid (Nephro-Noel) 1 tab PO DAILY [facility] Results - Vital Signs Recent Vital Signs: Last Vital Signs Temp 98.7 F 05/22/18 15:59 Pulse 73 05/22/18 15:59 Resp 20 05/22/18 15:59 BP 152/80 H 05/22/18 15:59 Pulse Ox 98 05/22/18 15:59 - Labs Result Diagrams: 05/22/18 04:20 05/22/18 04:20 Labs: Laboratory Results - last 24 hr 05/21/18 05/21/18 05/21/18 14:47 14:47 16:11 WBC RBC Hgb Hct MCV MCH MCHC RDW Plt Count Sodium Potassium Chloride Carbon Dioxide Anion Gap BUN Creatinine Est GFR ( Amer) Est GFR (Non-Af Amer) POC Glucose (mg/dL) 148 H Random Glucose Calcium Iron TIBC % Saturation Ferritin Total Bilirubin AST ALT Alkaline Phosphatase C-Reactive Protein 6.30 Total Protein Albumin Globulin Albumin/Globulin Ratio Vitamin B12 IgA 116.7 Complement C3 109.0 Complement C4 32.4 05/21/18 05/22/18 05/22/18 21:00 04:20 04:20 WBC 6.5 RBC 3.69 L Hgb 9.9 L Hct 31.3 L MCV 84.7 MCH 26.7 L MCHC 31.5 L RDW 16.9 H Plt Count 168 Sodium 142 Potassium 4.7 Chloride 107 Carbon Dioxide 26 Anion Gap 14 BUN 34 H Creatinine 1.9 H Est GFR ( Amer) 43 Est GFR (Non-Af Amer) 36 POC Glucose (mg/dL) 175 H Random Glucose 194 H Calcium 8.9 Iron TIBC % Saturation Ferritin Total Bilirubin 0.3 AST 32 ALT 38 Alkaline Phosphatase 64 C-Reactive Protein Total Protein 7.0 Albumin 3.8 Globulin 3.2 Albumin/Globulin Ratio 1.2 Vitamin B12 IgA Complement C3 Complement C4 05/22/18 05/22/18 05/22/18 06:17 11:07 13:28 WBC RBC Hgb Hct MCV MCH MCHC RDW Plt Count Sodium Potassium Chloride Carbon Dioxide Anion Gap BUN Creatinine Est GFR ( Amer) Est GFR (Non-Af Amer) POC Glucose (mg/dL) 188 H 148 H Random Glucose Calcium Iron 32 L TIBC 426 % Saturation 7 L Ferritin Total Bilirubin AST ALT Alkaline Phosphatase C-Reactive Protein Total Protein Albumin Globulin Albumin/Globulin Ratio Vitamin B12 IgA Complement C3 Complement C4 05/22/18 13:28 WBC RBC Hgb Hct MCV MCH MCHC RDW Plt Count Sodium Potassium Chloride Carbon Dioxide Anion Gap BUN Creatinine Est GFR ( Amer) Est GFR (Non-Af Amer) POC Glucose (mg/dL) Random Glucose Calcium Iron TIBC % Saturation Ferritin 12.6 L Total Bilirubin AST ALT Alkaline Phosphatase C-Reactive Protein Total Protein Albumin Globulin Albumin/Globulin Ratio Vitamin B12 > 1000 H IgA Complement C3 Complement C4
[2018-05-22 16:31] LABS: FOLATE > 20.0 ng/mL
--- NOTE | 2018-05-22 16:32 | CT ---
Date of service: 05/22/2018 PROCEDURE: CT Abdomen and Pelvis without intravenous contrast HISTORY: rlq pain COMPARISON: Comparison is made to the previous study dated 06/22/2016 TECHNIQUE: Axial and reformatted coronal and sagittal CT images of the abdomen and pelvis were obtained without IV or oral contrast administration.. Contrast dose: 0 Radiation dose: Total exam DLP = 922.17 mGy-cm. This CT exam was performed using one or more of the following dose reduction techniques: Automated exposure control, adjustment of the mA and/or kV according to patient size, and/or use of iterative reconstruction technique. FINDINGS: LOWER THORAX: No evidence of acute pathology at the lung bases. LIVER: Unremarkable. No gross lesion or ductal dilatation. GALLBLADDER AND BILE DUCTS: Unremarkable. PANCREAS: Unremarkable. No gross lesion or ductal dilatation. SPLEEN: Unremarkable. ADRENALS: Unremarkable. No mass. KIDNEYS AND URETERS: There is a 7.5 millimeter nonobstructing calculus at the midpole of the right kidney. No evidence of hydronephrosis or hydroureter. VASCULATURE: Unremarkable. No aortic aneurysm. No aortic atherosclerotic calcification or mural plaque present. BOWEL: Mild constipation is noted. No obstruction. No gross mural thickening. APPENDIX: The appendix is not visualized. There is no evidence of acute appendicitis. PERITONEUM: Unremarkable. No free fluid. No free air. LYMPH NODES: Unremarkable. No enlarged lymph nodes. BLADDER: There is a suprapubic Weldon catheter extending to the bladder. The bladder is collapsed around the Weldon catheter. REPRODUCTIVE: The prostate and seminal vesicles are normal in size. BONES: No acute fracture. OTHER FINDINGS: None. IMPRESSION: 7 millimeter nonobstructing calculus at the midpole of the right kidney. No evidence of hydronephrosis or hydroureter. No evidence of cholecystitis pancreatitis or appendicitis.
[2018-05-23 05:35] LABS: HEMOGLOBIN 9.7 g/dL (12.0-18.0); MEAN CELL VOLUME 86.6 fl (80.0-94.0); MEAN CORPUSCULAR HEMOGLOBIN 26.9 pg (27.0-31.0); MEAN CORPUSCULAR HGB CONC 31.1 g/dL (33.0-37.0); RBC 3.61 Mil/uL (4.40-5.90); RED CELL DISTRIBUTION WIDTH 16.2 % (11.5-14.5); WHITE BLOOD COUNT 6.9 K/uL (4.8-10.8)
[2018-05-23 05:49] LABS: ALB/GLOB RATIO 1.2 (1.0-2.1); ALBUMIN 3.8 g/dL (3.5-5.0); CALCIUM 8.6 mg/dL (8.4-10.2); URIC ACID 4.4 mg/Dl (3.5-8.5)
[2018-05-23 08:48] VITALS: BP 144/76; PULSE 71; RESP 18; TEMP 98.5; O2SAT 99
[2018-05-23] MEDS ORDERED: Multivitamin Vitamin B Complex (Nephro-Vite) Tab PO SCH (09:00)
[2018-05-23] MEDS: Ranolazine 500 mg Extended Release Tablets PO SCH (10:02)
[2018-05-23] MEDS: Tiotropium 18 mcg Cap For Inhalation IH SCH (10:03)
[2018-05-23] MEDS: GlipiZIDE 2.5 mg SR Tab PO SCH (10:03)
[2018-05-23] MEDS: Levothyroxine 125 MCG TAB PO SCH (10:04)
[2018-05-23] MEDS: Metoprolol Succinate 100 mg XL Tab PO SCH (10:04)
[2018-05-23] MEDS: Calamine/Zinc Oxide LOTION TOP SCH (10:13)
--- NOTE | 2018-05-23 10:53 | CP.PCM.PN ---
Subjective - Date & Time of Evaluation Date of Evaluation: 05/23/18 Time of Evaluation: 10:52 - Subjective Subjective: patient sitting up out of bed in the chair feeling good no nausea no vomiting no chest pain Weldon catheter in place and draining very well. Objective - Vital Signs/Intake and Output Vital Signs (last 24 hours): Temp Pulse Resp BP Pulse Ox 98.5 F 71 18 144/76 99 05/23/18 08:00 05/23/18 10:04 05/23/18 08:00 05/23/18 10:04 05/23/18 08:00 - Medications Medications: Current Medications Albuterol (Ventolin Hfa 90 Mcg/Actuation (8 G)) 2 puff IH Q4 PRN PRN Reason: Shortness of Breath Allopurinol (Zyloprim) 300 mg PO DAILY [facility] Last Admin: 05/23/18 10:02 Dose: 300 mg Amlodipine Besylate (Norvasc) 5 mg PO DAILY [facility] Last Admin: 05/23/18 10:03 Dose: 5 mg Atorvastatin Calcium (Lipitor) 40 mg PO HS [facility] Last Admin: 05/22/18 22:58 Dose: 40 mg Calamine (Calamine Lotion) 1 applic TOP TID [facility] Last Admin: 05/23/18 10:13 Dose: 1 applic Clopidogrel Bisulfate (Plavix) 75 mg PO DAILY [facility] Last Admin: 05/23/18 10:03 Dose: 75 mg Ferrous Gluconate (Fergon) 324 mg PO TID [facility] Last Admin: 05/23/18 10:02 Dose: 324 mg Glipizide (Glucotrol Xl) 2.5 mg PO DAILY [facility] Last Admin: 05/23/18 10:03 Dose: 2.5 mg Piperacillin Sod/Tazobactam (Sod 2.25 gm/ Sodium Chloride) 100 mls @ 100 mls/hr IVPB Q8 [facility]; Protocol Last Admin: 05/23/18 10:05 Dose: 100 mls/hr Isosorbide Mononitrate (Imdur) 60 mg PO DAILY [facility] Last Admin: 05/23/18 10:02 Dose: 60 mg Levothyroxine Sodium (Synthroid) 125 mcg PO DAILY@0630 [facility] Last Admin: 05/23/18 10:04 Dose: 125 mcg Losartan Potassium (Cozaar) 25 mg PO DAILY [facility] Last Admin: 05/23/18 10:03 Dose: 25 mg Metoprolol Succinate (Toprol Xl) 100 mg PO BID [facility] Last Admin: 05/23/18 10:04 Dose: 100 mg Nitroglycerin (Nitrostat Sl Tab) 0.4 mg SL PRN PRN PRN Reason: Until an adequate response is Ranolazine (Ranexa) 500 mg PO BID [facility] Last Admin: 05/23/18 10:02 Dose: 500 mg Tiotropium [place] (Spiriva) 18 mcg IH DAILY [facility] Last Admin: 05/23/18 10:03 Dose: 18 mcg Vitamin B Complex/Vit C/Folic Acid (Nephro-Noel) 1 tab PO DAILY [facility] Last Admin: 05/23/18 10:02 Dose: 1 tab - Labs Labs: 05/23/18 04:20 05/23/18 04:20 - Constitutional Appears: No Acute Distress - Eye Exam Eye Exam: Conjunctival injection - ENT Exam ENT Exam: Mucous Membranes Moist - Neck Exam Neck Exam: absent: Lymphadenopathy - Cardiovascular Exam Cardiovascular Exam: REGULAR RHYTHM. absent: Gallop, Rubs - GI/Abdominal Exam GI & Abdominal Exam: Soft, Normal Bowel Sounds - Extremities Exam Extremities Exam: absent: Calf Tenderness - Back Exam Back Exam: absent: CVA tenderness (L), CVA tenderness (R) - Neurological Exam Neurological Exam: Alert - Psychiatric Exam Psychiatric exam: Normal Affect - Skin Skin Exam: absent: Cyanosis Assessment and Plan - Assessment and Plan (Free Text) Assessment: Assessment: Stable Diabetic chronic Kidney Disease (E11.22) Hypertensive Chronic Kidney Disease (I12.9) Chronic Kidney Disease (N18.3) Stage 3 with ? mg proteinuria (R80.9) likely due to DM/HTN/GABRIELLA Anemia (D64.9), obesity, CAD s/p stent, asthma uric acid stones chronic SP catheter with hx o stricture, atonic bladder and overflow incontinence Plan No acute need for renal replacement therapy at this time. Hypertension control with meds as ordered. Maintain hemodynamics stable. Avoid hypotension. Patient not on ACEI/ARB hence added losartan 25 mg/day Monitor Input/Output, daily weights and renal function with basic metabolic panel started iron and MVI added allopurinol considering hx of uric acid stones Dose meds/antibiotics for reduced GFR. Avoid fleets enema/magnesium based laxatives. Avoid nephrotoxins/NSAIDs/ iodinated contrast (unless needed emergently) Glycemic control Further work up/management as per primary team patient is going home on follow-up as outpatient by the primary care physician also by nephrology follow-up patient has appointment.
--- NOTE | 2018-05-23 10:55 | CP.PCM.PN ---
Subjective - Date & Time of Evaluation Date of Evaluation: 05/23/18 Time of Evaluation: 09:00 - Subjective Subjective: afeb rash resolved d/c on PO rx Objective - Vital Signs/Intake and Output Vital Signs (last 24 hours): Temp Pulse Resp BP Pulse Ox 98.5 F 71 18 144/76 99 05/23/18 08:00 05/23/18 10:04 05/23/18 08:00 05/23/18 10:04 05/23/18 08:00 - Medications Medications: Current Medications Albuterol (Ventolin Hfa 90 Mcg/Actuation (8 G)) 2 puff IH Q4 PRN PRN Reason: Shortness of Breath Allopurinol (Zyloprim) 300 mg PO DAILY [facility] Last Admin: 05/23/18 10:02 Dose: 300 mg Amlodipine Besylate (Norvasc) 5 mg PO DAILY [facility] Last Admin: 05/23/18 10:03 Dose: 5 mg Atorvastatin Calcium (Lipitor) 40 mg PO HS [facility] Last Admin: 05/22/18 22:58 Dose: 40 mg Calamine (Calamine Lotion) 1 applic TOP TID [facility] Last Admin: 05/23/18 10:13 Dose: 1 applic Clopidogrel Bisulfate (Plavix) 75 mg PO DAILY [facility] Last Admin: 05/23/18 10:03 Dose: 75 mg Ferrous Gluconate (Fergon) 324 mg PO TID [facility] Last Admin: 05/23/18 10:02 Dose: 324 mg Glipizide (Glucotrol Xl) 2.5 mg PO DAILY [facility] Last Admin: 05/23/18 10:03 Dose: 2.5 mg Piperacillin Sod/Tazobactam (Sod 2.25 gm/ Sodium Chloride) 100 mls @ 100 mls/hr IVPB Q8 [facility]; Protocol Last Admin: 05/23/18 10:05 Dose: 100 mls/hr Isosorbide Mononitrate (Imdur) 60 mg PO DAILY [facility] Last Admin: 05/23/18 10:02 Dose: 60 mg Levothyroxine Sodium (Synthroid) 125 mcg PO DAILY@0630 [facility] Last Admin: 05/23/18 10:04 Dose: 125 mcg Losartan Potassium (Cozaar) 25 mg PO DAILY [facility] Last Admin: 05/23/18 10:03 Dose: 25 mg Metoprolol Succinate (Toprol Xl) 100 mg PO BID [facility] Last Admin: 05/23/18 10:04 Dose: 100 mg Nitroglycerin (Nitrostat Sl Tab) 0.4 mg SL PRN PRN PRN Reason: Until an adequate response is Ranolazine (Ranexa) 500 mg PO BID [facility] Last Admin: 05/23/18 10:02 Dose: 500 mg Tiotropium [place] (Spiriva) 18 mcg IH DAILY [facility] Last Admin: 05/23/18 10:03 Dose: 18 mcg Vitamin B Complex/Vit C/Folic Acid (Nephro-Noel) 1 tab PO DAILY [facility] Last Admin: 05/23/18 10:02 Dose: 1 tab - Labs Labs: 05/23/18 04:20 05/23/18 04:20 - Constitutional Appears: Non-toxic, Chronically Ill - Head Exam Head Exam: NORMOCEPHALIC - Eye Exam Eye Exam: absent: Scleral icterus - ENT Exam ENT Exam: Mucous Membranes Dry - Neck Exam Neck Exam: absent: Lymphadenopathy - Respiratory Exam Respiratory Exam: Decreased Breath Sounds - Cardiovascular Exam Cardiovascular Exam: REGULAR RHYTHM - GI/Abdominal Exam GI & Abdominal Exam: Distended - Rectal Exam Rectal Exam: Deferred - Exam Exam: NORMAL INSPECTION Assessment and Plan (1) Cellulitis Status: Acute (2) Benign prostate hyperplasia Status: Acute (3) CAD (coronary artery disease) Status: Acute (4) Chronic kidney disease, stage IV (severe) Status: Acute
--- NOTE | 2018-05-23 15:31 | CP.PCM.DIS ---
Provider - Provider Date of Admission: 05/22/18 10:51 Attending physician: Gregor Eden MD Primary care physician: Monalisa Dooley Consults: ID: Dr Owen Nephrology: Dr Cruz. Time Spent in preparation of Discharge (in minutes): 30 Diagnosis - Discharge Diagnosis (1) Cellulitis Status: Acute (2) Rash and nonspecific skin eruption Status: Acute Comment: Will continue outpatient evaluation and management. Hospital Course - Lab Results Lab Results: Micro Results 05/20/18 12:10 Blood Blood Culture - Preliminary NO GROWTH AFTER 3 DAYS 05/20/18 12:00 Blood Blood Culture - Preliminary NO GROWTH AFTER 3 DAYS 05/20/18 14:07 Urine,Suprapubic Urine Culture - Final Klebsiella Pneumoniae Ssp Pneu Most Recent Lab Values WBC 6.9 K/uL (4.8-10.8) 05/23/18 04:20 RBC 3.61 Mil/uL (4.40-5.90) L 05/23/18 04:20 Hgb 9.7 g/dL (12.0-18.0) L 05/23/18 04:20 Hct 31.2 % (35.0-51.0) L 05/23/18 04:20 MCV 86.6 fl (80.0-94.0) 05/23/18 04:20 MCH 26.9 pg (27.0-31.0) L 05/23/18 04:20 MCHC 31.1 g/dL (33.0-37.0) L 05/23/18 04:20 RDW 16.2 % (11.5-14.5) H 05/23/18 04:20 Plt Count 186 K/uL (130-400) 05/23/18 04:20 MPV 8.1 fl (7.2-11.7) 05/20/18 12:00 Neut % (Auto) 69.1 % (50.0-75.0) 05/20/18 12:00 Lymph % (Auto) 17.3 % (20.0-40.0) L 05/20/18 12:00 [place] % (Auto) 9.4 % (0.0-10.0) 05/20/18 12:00 Eos % (Auto) 3.3 % (0.0-4.0) 05/20/18 12:00 Baso % (Auto) 0.9 % (0.0-2.0) 05/20/18 12:00 Neut # (Auto) 4.3 K/uL (1.8-7.0) 05/20/18 12:00 Lymph # (Auto) 1.1 K/uL (1.0-4.3) 05/20/18 12:00 [place] # (Auto) 0.6 K/uL (0.0-0.8) 05/20/18 12:00 Eos # (Auto) 0.2 K/uL (0.0-0.7) 05/20/18 12:00 Baso # (Auto) 0.1 K/uL (0.0-0.2) 05/20/18 12:00 ESR 38 mm/hr (0-20) H 05/21/18 14:47 pO2 41 mm/Hg (30-55) 05/20/18 15:42 VBG pH 7.35 (7.32-7.43) 05/20/18 15:42 VBG pCO2 50 mmHg (40-60) 05/20/18 15:42 VBG HCO3 25.2 mmol/L 05/20/18 15:42 VBG Total CO2 29.1 mmol/L (22-28) H 05/20/18 15:42 VBG O2 Sat (Calc) 80.1 % (40-65) H 05/20/18 15:42 VBG Base Excess 1.2 mmol/L (0.0-2.0) 05/20/18 15:42 VBG Potassium 3.8 mmol/L (3.6-5.2) 05/20/18 15:42 Sodium 141.0 mmol/L (132-148) 05/20/18 15:42 Chloride 110.0 mmol/L (98-107) H 05/20/18 15:42 Glucose 97 mg/dL (75-110) 05/20/18 15:42 Lactate 0.8 mmol/L (0.7-2.1) 05/20/18 15:42 FiO2 28.0 % 05/20/18 15:42 Crit Value Called To Dr nadir schwartz 05/20/18 12:15 Crit Value Called By Rt 05/20/18 12:15 Crit Value Read Back Y 05/20/18 12:15 Blood Gas Notified Time 1237 05/20/18 12:15 Sodium 141 mmol/l (132-148) 05/23/18 04:20 Potassium 4.5 MMOL/L (3.6-5.0) 05/23/18 04:20 Chloride 107 mmol/L (98-107) 05/23/18 04:20 Carbon Dioxide 26 mmol/L (22-30) 05/23/18 04:20 Anion Gap 13 (10-20) 05/23/18 04:20 BUN 27 mg/dl (9-20) H 05/23/18 04:20 Creatinine 1.8 mg/dl (0.8-1.5) H 05/23/18 04:20 Est GFR ( Amer) 46 05/23/18 04:20 Est GFR (Non-Af Amer) 38 05/23/18 04:20 POC Glucose (mg/dL) 200 mg/dL (65-110) H 05/23/18 10:57 Random Glucose 159 mg/dL (75-110) H 05/23/18 04:20 Uric Acid 4.4 mg/Dl (3.5-8.5) 05/23/18 04:20 Calcium 8.6 mg/dL (8.4-10.2) 05/23/18 04:20 Phosphorus 4.0 mg/dl (2.5-4.5) 05/23/18 04:20 Iron 32 ug/dL (49-181) L 05/22/18 13:28 TIBC 426 ug/dL (250-450) 05/22/18 13:28 % Saturation 7 % (20-55) L 05/22/18 13:28 Ferritin 12.6 ng/Ml (17.9-464) L 05/22/18 13:28 Total Bilirubin 0.3 mg/dl (0.2-1.3) 05/23/18 04:20 AST 32 U/L (17-59) 05/23/18 04:20 ALT 43 U/L (21-72) 05/23/18 04:20 Alkaline Phosphatase 67 U/L (38-126) 05/23/18 04:20 Troponin I 0.0240 ng/mL (0.00-0.120) 05/21/18 03:10 C-Reactive Protein 6.30 mg/L (0.0-9.9) 05/21/18 14:47 NT-Pro-B Natriuret Pep 148 pg/ml (0-900) 05/20/18 12:00 Total Protein 6.9 G/DL (6.3-8.2) 05/23/18 04:20 Albumin 3.8 g/dL (3.5-5.0) 05/23/18 04:20 Globulin 3.1 gm/dL (2.2-3.9) 05/23/18 04:20 Albumin/Globulin Ratio 1.2 (1.0-2.1) 05/23/18 04:20 Vitamin B12 > 1000 pg/mL (239-931) H 05/22/18 13:28 25-OH Vitamin D Total 30.1 NG/ML (30.0-100.0) 05/23/18 04:20 Folate > 20.0 ng/mL 05/22/18 13:28 Venous Blood Potassium 3.8 mmol/L (3.6-5.2) 05/20/18 15:42 Ur Random Creatinine 75 mg/dL (20-320) 05/22/18 14:55 Urine Total Volume 10.6 mg/dL 05/22/18 14:55 Microalb/Creat Ratio 142 (<30) H 05/22/18 14:55 IgA 116.7 mg/dL (70.0-400.0) 05/21/18 14:47 Complement C3 109.0 mg/dL (88.0-165.0) 05/21/18 14:47 Complement C4 32.4 mg/dL (14.0-44.0) 05/21/18 14:47 - Hospital Course Hospital Course: 62 y/o male with a PMHx of Asthma, HTN, DM , CAD s/p stent placement, renal insufficiency and suprapubic tube placement was admitted due to bilateral leg cellulitis. Due to possibility of b/l leg rash being petechial, there was a concern for immuno/rheumatological pathology. Spot microalbumin/creatinine ratio was elevated, uric acid level was WNL, vit D was WNL, . Iron therapy was started. Allopurinol was added. The following bloodwork is still pending: Serum protein electrophoresis with immunofixation, serum free light chain assay ([place]/Lambda) and iPTH. Pt was on Zosyn while on admision. -Today, pt was seen and examined by bedside with Dr Gay. Pt reported feeling OK Pt afebrile, tolerating PO with NO acute events overnight. Pt was cleared by ID and nephrology for outpatient management. Pt stable will d/c home, Medication upon d/c: calamine lotion, Ciprofloxacin, Iron and multi-vitamins. Discharge Exam - Additional Findings Additional findings: - Constitutional Appears: Well, No Acute Distress - Head Exam Head Exam: NORMAL INSPECTION - Eye Exam Eye Exam: Normal appearance - Neck Exam Neck Exam: Normal Inspection - Respiratory Exam Respiratory Exam: NORMAL BREATHING PATTERN - Cardiovascular Exam Cardiovascular Exam: +S1, +S2 - GI/Abdominal Exam GI & Abdominal Exam: Soft - Extremities Exam Additional comments: bilateral lesions appearing petechiae like extending from below knee to ankles, improving R>L - Neurological Exam Neurological Exam: Alert, Awake, Oriented x3 - Psychiatric Exam Psychiatric exam: Normal Affect, Normal Mood - Skin Skin Exam: Normal Color, Warm Discharge Plan - Discharge Medications Prescriptions: Calamine/Zinc Oxide [Calamine Lotion] 1 applic TOP TID #1 bottle Ciprofloxacin HCl [Cipro] 250 mg PO Q12 #10 tab Ferrous Gluconate [Fergon] 324 mg PO TID #90 tab Vitamin B Complex/Vit C/Folic [Nephro-Noel] 1 tab PO DAILY #30 tab - Follow Up Plan Condition: FAIR Disposition: HOME/ ROUTINE Instructions: Chest Pain (DC), Cellulitis (Skin Infection), Adult (DC), Cellulitis (DC), Cellulitis (GEN) Additional Instructions: follow up with and in 1 week Referrals: Henry Cruz MD [Staff Provider] - Monalisa Arroyo MD [Medical Doctor] -
[2018-05-25 00:05] LABS: ALBUMIN (PEP) 3.4 g/dL (3.8-4.8); ALPHA-1-GLOBULIN (PEP) 0.3 g/dL (0.2-0.3)
== END 2018-05-23 13:40 | disposition home or self-care (01) | DRG 383 ==
LOC: H.ER 11:30 → H.ERHOLD 13:14 → H.TEL 14:45 → OBSVTOIN 05-22 10:51
PROVIDERS: ADMIT Family Medicine; ATTEND Family Medicine
DX: L03.115 Cellulitis of right lower limb (principal); N18.4 Chronic kidney disease, stage 4 (severe); L03.116 Cellulitis of left lower limb; E11.22 Type 2 diabetes mellitus with diabetic chronic kidney disease; N31.2 Flaccid neuropathic bladder, not elsewhere classified; I12.9 Hypertensive chronic kidney disease with stage 1 through stage 4 chronic kidney disease, or unspecified chronic kidney disease; D63.1 Anemia in chronic kidney disease; R23.3 Spontaneous ecchymoses; N39.490 Overflow incontinence; E03.9 Hypothyroidism, unspecified; I25.10 Atherosclerotic heart disease of native coronary artery without angina pectoris; E78.00 Pure hypercholesterolemia, unspecified; J44.9 Chronic obstructive pulmonary disease, unspecified; M06.9 Rheumatoid arthritis, unspecified; N40.0 Benign prostatic hyperplasia without lower urinary tract symptoms; E66.9 Obesity, unspecified; Z68.34 Body mass index [BMI] 34.0-34.9, adult; Z95.5 Presence of coronary angioplasty implant and graft; Z79.02 Long term (current) use of antithrombotics/antiplatelets; Z79.84 Long term (current) use of oral hypoglycemic drugs; Z87.442 Personal history of urinary calculi; Z90.49 Acquired absence of other specified parts of digestive tract; Z87.01 Personal history of pneumonia (recurrent)